=== PATIENT | female | born 1970 | race Caucasian/White ===

== ENCOUNTER 2017-08-31 10:19 | Emergency (ER) | payer MEDICAID ==
[2017-08-31 10:37] VITALS: BP 129/74
--- NOTE | 2017-08-31 10:47 | EDM.PDOC ---
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 She recognizes this as similar to pleurisy she has had in the past. Has been taking ibuprofen 400 mg once a day without relief. She denies fever or SOB. Has had cold sx's lately. No calf pain or LE edema. Onset: Gradual Onset Date: 08/30/17 Duration: Hour(s):, Constant Location: Reports: Chest (R lateral) Quality: Reports: Sharp, Stabbing Severity: Moderate Improves with: Reports: Rest Worsens with: Reports: Breathing Context: Reports: Other (hx of pleurisy. Cigarette smoker.) Associated Symptoms: Reports: Chest Pain. 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 Denies: Shortness of Breath, Wheezing, Sputum Cardiovascular: Reports: No Symptoms GI/Abdominal: Reports: No Symptoms : Reports: No Symptoms Musculoskeletal: Reports: No Symptoms Skin: Reports: No Symptoms Neurological: Reports: No Symptoms Psychiatric: Reports: No Symptoms ED EXAM, GENERAL - Physical Exam Exam: See Below Exam Limited By: No Limitations General Appearance: Alert, WD/WN, No Apparent Distress Eye Exam: Bilateral Eye: Normal Inspection Ears: Normal External Exam, Normal Canal, Hearing Grossly Normal, Normal TMs Ear Exam: Bilateral Ear: Auricle Normal, Canal Normal Nose: Normal Inspection, Normal Mucosa, No Blood Throat/Mouth: Normal Inspection, Normal Lips, Normal Teeth, Normal Oropharynx, Normal Voice, No Airway Compromise Head: Atraumatic, Normocephalic Neck: Normal Inspection, Supple, Non-Tender Respiratory/Chest: No Respiratory Distress, Lungs Clear, Normal Breath Sounds, No Accessory Muscle Use, Chest Non-Tender Cardiovascular: Regular Rate, Rhythm, No Edema GI/Abdominal: Normal Bowel Sounds, Soft, Non-Tender, No Distention Back Exam: Normal Inspection Extremities: Normal Inspection, Normal Range of Motion, Non-Tender, No Pedal Edema. No: Pedal Edema, Sammie's Sign Neurological: Alert, Oriented, CN II-XII Intact, Normal Cognition Psychiatric: Normal Affect, Normal Mood Skin Exam: Warm, Dry, Intact, Normal Color, No Rash EKG INTERPRETATION EKG Date: 08/31/17 Time: 10:35 Rhythm: NSR Rate (Beats/Min): 93 Mitchell: Normal P-Wave: Present QRS: Normal ST-T: Normal QT: Normal Comparison: NA - No Prior EKG Course - Vital Signs Last Recorded V/S: Last Vital Signs Temp 34.5 C L 08/31/17 10:37 Pulse 94 08/31/17 10:37 Resp 16 08/31/17 10:37 BP 129/74 08/31/17 10:37 Pulse Ox 99 08/31/17 10:37 - Orders/Labs/Meds Orders: Active Orders 24 hr Category Date Time Status EKG Documentation Completion [RC] ASDIRECTED Care 08/31/17 10:34 Active EKG 12 Lead [EK] Routine Ther 08/31/17 10:34 Ordered Departure - Departure Time of Disposition: 11:07 Disposition: Home, Self-Care 01 Condition: Good Clinical Impression: Pleurisy, Tobacco use disorder Prescriptions: Naproxen 500 mg PO Q12H PRN #14 tablet PRN Reason: Pain Referrals: PCP,None [Primary Care Provider] - Forms: ED Department Discharge Additional Instructions: No smoking. Take naproxen every 12 hrs with food. Recheck in the clinic next week, sooner if worse. - My Orders Last 24 Hours: My Active Orders 08/31/17 10:34 EKG Documentation Completion [RC] ASDIRECTED EKG 12 Lead [EK] Routine - Assessment/Plan Last 24 Hours: My Active Orders 08/31/17 10:34 EKG Documentation Completion [RC] ASDIRECTED EKG 12 Lead [EK] Routine
== END 2017-08-31 11:16 | disposition home or self-care (01) ==
LOC: JP.ED 10:19
DX: R09.1 Pleurisy (principal); F17.210 Nicotine dependence, cigarettes, uncomplicated
CPT/HCPCS: 93005; 99283; 99285-25